=== PATIENT | male | born 1960 | race Caucasian/White ===

== ENCOUNTER 2022-07-12 09:52 | Outpatient (REF) | payer OTHER, SELFPAY | END 2022-07-12 09:53 | disposition home or self-care (01) | LOC: HO.BBR 09:52 | PROVIDERS: Visit Provider Internal Medicine Hematology | DX: D45 Polycythemia vera (principal) | CPT/HCPCS: 85018; 99195 ==

== ENCOUNTER 2022-07-17 08:02 | Outpatient (REF) | payer OTHER, SELFPAY | END 2022-07-17 08:03 | disposition home or self-care (01) | LOC: HO.BBR 08:02 | PROVIDERS: Visit Provider Internal Medicine Hematology | DX: D75.1 Secondary polycythemia (principal) | CPT/HCPCS: 85014; 85018; 99195 ==

== ENCOUNTER 2022-10-17 07:59 | Outpatient (REF) | payer OTHER, SELFPAY | END 2022-10-17 08:00 | disposition home or self-care (01) | LOC: HO.BBR 07:59 | PROVIDERS: Visit Provider Internal Medicine Hematology | DX: D75.1 Secondary polycythemia (principal) | CPT/HCPCS: 85018; 99195 ==

== ENCOUNTER 2023-01-17 07:59 | Outpatient (REF) | payer OTHER, SELFPAY | END 2023-01-17 08:00 | disposition home or self-care (01) | LOC: HO.BBR 07:59 | PROVIDERS: PCP Internal Medicine; Visit Provider Internal Medicine Hematology | DX: D75.1 Secondary polycythemia (principal) | CPT/HCPCS: 85018; 99195 ==

== ENCOUNTER 2023-04-21 07:57 | Outpatient (REF) | payer OTHER, SELFPAY | END 2023-04-21 07:58 | disposition home or self-care (01) | LOC: HO.BBR 07:57 | PROVIDERS: PCP Internal Medicine; Visit Provider Internal Medicine Hematology | DX: D75.1 Secondary polycythemia (principal) | CPT/HCPCS: 85018; 99195 ==

== ENCOUNTER 2023-07-28 09:41 | Outpatient (REF) | payer OTHER, SELFPAY | END 2023-07-28 09:42 | disposition home or self-care (01) | LOC: HO.BBR 09:41 | PROVIDERS: PCP Internal Medicine; Visit Provider Internal Medicine Hematology | DX: D75.1 Secondary polycythemia (principal) | CPT/HCPCS: 85018 ==

== ENCOUNTER 2023-10-22 10:02 | Outpatient (REF) | payer MEDICARE, SELFPAY | END 2023-10-22 10:03 | disposition home or self-care (01) | LOC: HO.BBR 10:02 | PROVIDERS: PCP Internal Medicine; Visit Provider Internal Medicine Hematology | DX: D75.1 Secondary polycythemia (principal) | CPT/HCPCS: 85018; 99195 ==

== ENCOUNTER 2024-01-22 08:40 | Outpatient (REF) | payer MEDICARE, SELFPAY | END 2024-01-22 08:41 | disposition home or self-care (01) | LOC: HO.BBR 08:40 | PROVIDERS: PCP Internal Medicine; Visit Provider Internal Medicine Hematology | DX: D75.1 Secondary polycythemia (principal) | CPT/HCPCS: 85014; 85018; 99195 ==

== ENCOUNTER 2024-04-23 08:51 | Outpatient (REF) | payer MEDICARE, SELFPAY ==
--- OUTSIDE RECORDS SUMMARY | 2024-04-23 09:12 | XMS_ITS | Clinical Summary ---
Author Organization [facility] Address [address] [place] [address] Care Team Providers Care Foot Drill Operator Name Role Phone Ksenia Pat PA-C Primary Care Provider [phone] Source Comments PLEASE NOTE, if this patient is a minor, it may be UNLAWFUL to discuss sensitive information that is contained in these records (such as FAMILY PLANNING, MENTAL HEALTH or SUBSTANCE ABUSE) with the minor patient's parent or other person without the patient's specific authorization.[facility] Allergies Active Allergy Reactions Criticality Noted Date Comments Oxycodone-Acetaminophen Swelling 06/17/2014 Penicillin G Rash 06/17/2014 Medications azithromycin (ZITHROMAX) 250 mg tabletIndications :Strep pharyngitis Take 2 tabs x 1 day, then 1 tab daily x 5 days. 6 Tab 0 09/15/2014 Active fluticasone (FLONASE) 50 mcg/actuation nasal sprayIndications: URI (upper respiratory infection) Place 1 [place] into the nostril(s) once daily. 16 g 0 10/11/2014 Active Active Problems Problem Noted Date Diagnosed Date H/O CT scan of abdomen/ [facility] 07/06/15 07/16/2015 Overview (07/16/2015): Mild cardiomegally Mult indeterminate lesion in liver; spleen and adrenals normal. No hydronephrosis b/l. No renal calculi- likely benign cyst in right kidney ? asymetry along left prostate degen cng L4-L5 Plan cystoscopy under sedation to r/o CA by uro Hematuria 07/07/2015 Overview (08/30/2015): 08/24/15 [facility] retrograde pyelogram- kennedy contoour, caliber, and contrast density to ureters b/l and collecting system 08/24/15 had cytoscopy done bx taken; biopsies were from hemangioma areas 06/26/15 urine neg for malignant cells 07/07/15 saw uro- MD Renay plan? CT ? Mild eccentric thickening right lateral aspect of bladder- bilat fat inguinal hernia and enlarged prostate with calcifications pt had GROSS hematuria with clotsthe pt would like to proceed with cytology under sedation to r/o cancer definatively [facility] [phone] ua RBC small, ord CT pelvis and doing cystoscopy Urinary frequency 05/25/2015 Overview (10/03/2015): 09/05/15 saw uro- dr. niño- : gross hemataturia: recent TURBT neg for malig. F/u 6 mon with cytology x 3. BPH: emptying well- pvr 59cc 06/26/15 urine neg for amlignant cells PV urolofy 05/22/14 uro [facility], Dr. 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 +narrowing of the interverterbral disc space, and marginal osteophytes noted. +lack of normal lordotic curvature noted+osteophytes in=mpinging on the left lat neural foramen at the C7-T-1 level LSspine film done multilevel chg of LS with gr 1 anterolisthesis of L5 on S1. +mild decreased body height of L5 degenerative in nature and as the result of BULGING disc at L5-S-1, and L4-L-5 levels See's [place] [facility] #[phone],Marc Culver D.C.,MARTHA: pt responding to pulsatar for manipulation Esophageal reflux Overview (06/17/2014): 2014: had egd/colon at [facility]. det pre workout drink was the prob/avaioid soda/gluten Left thigh pain Overview (06/17/2014): torn left quad Biceps tendon rupture Overview (06/17/2014): left 2011 Left hand pain Overview (06/17/2014): chronic ligament tear; 2009 LBP (low back pain) Overview (06/17/2014): chiropractor. that helped. has pulse star. he wants xray Sinus disease Overview (06/17/2014): congestion life long. goes to chiropracter for this Normal cardiac stress test Overview (06/17/2014): done in [place]: normal EKG [facility] Skin cancer, basal cell Overview (06/17/2014): scalp/forehead Family History Medical History Relation Name Comments Alcohol/Drug Abuse Brother Diabetes Father parkinsons at age 70 Heart Problems Father parkinsons at age 70 Asthma Mother 70's Diabetes Mother 70's Heart Problems Mother 70's Relation Name Status Comments Brother Alive Father parkinsons at age 70 Mother 70's Sister well Alive Social History Tobacco Use Types Packs/Day Years Used Date Smoking Tobacco: Never Alcohol Use Standard Drinks/Week Comments Yes 0 (1 standard drink = 0.6 oz pur e alcohol) rare Social Connections Answer Date Recorded Social Connections and Isolation 0 11/08/2018 Financial Resource Strain Answer Date R ecorded Financial Resource Strain 0 2018 Stress Answer Date Recorded Stress 0 11/08/2018 Physical Activity Answer Date Recorded Physical Activity 0 11/08/2018 Food Insecurity Answer Date Recorded Food 0 11/08/2018 Transportation Needs Answer Date Record ed Transportation 0 11/08/2018 Housing Stability Answer Date Recorded Housing 0 11/08/2018 Safety and Environment Answer Date Yamil rded Safety 0 11/08/2018 Utilities Answer Date Recorded Utilities 0 11/08/2018 Employment Answer Date Recorded Employment 0 11/08/2018 Sex and Gender Information Value Date Recorded Sex Assigned at Not on file Legal Sex Male 7:41 AM PST Gender Identity Not on file Sexual Orientation Not on file Last Filed Vital Signs Vital Sign Reading Time Taken Comments Blood Pressure 132/90 06/22/2015 9:29 AM EDT Pulse 76 06/22/2015 9:29 AM EDT Temperature 36.7 ??C (98 ??F) 06/22/2015 9:29 AM EDT Respiratory Rate 19 06/22/2015 9:29 AM EDT Oxygen Saturation - - Inhaled Oxygen Concentration - - Weight 105.1 kg (231 lb 11.2 oz) 06/22/2015 9:29 AM EDT Height 193 cm (6' 4 ) 09/12/2014 2:11 PM EDT Body Mass Index 28.2 09/12/2014 2:11 PM EDT Plan of Treatment Not on file Insurance [facility] Member Subscriber Plan / Payer (Ef fective 2014-Present) Name:Kirill Vázquez Relation to Subscriber:Self Name:Kirill Vázquez Payer ID:[id number] Group ID:Not on file Type:Medicaid Address: [address] [address] Care Teams Foot Drill Operator Relationship Specialty Start Date End Date Ksenia Pat PA-C [address] [place] [address] PCP - General 05/12/18
--- OUTSIDE RECORDS SUMMARY | 2024-04-23 09:12 | XMS_ITS | Continuity of Care Document ---
Author Organization [facility] Address [address] [place] [address]- Care Team Providers Care Vocal Artist Name Role Phone Brian Goldsmith DO Primary Care Physician [id number] Date(s): 01/09/24 - 04/03/24 [facility]ly [facility] [address] [place] [address]- Discharge Disposition: A-D/C Home Attending Physician: Daiana GRIDER(Hem/Onc), Alejo Vallejo Admitting Physician: Daiana GRIDER(Hem/Onc)Alejo Referring Physician: Brian Goldsmith DO Encounter Type: Disch Recurring OP Allergies, Adverse Reactions, Alerts Substance Criticality Severity Reaction Reaction Severity Status penicillin rash Active Percocet 5/325 swelling Activ e oxyCODONE Flushing Active OxyCONTIN swelling, rash Activ e Medications Claritin 10 mg oral tablet 10 mg, 1, tablet, By Mouth, Daily, Refills 0, Maintenance, 06/29/22 10:27:00 AM EDT, Partial fill upon patient request if the prescription is for a schedule II opioid drug. Start Date: 06/29/22 Status: Ordered Repeat number: 1 Probiotic Formula By Mouth, Daily, 0 Refills, Maintenance, 06/29/22 10:38:00 AM EDT, Partial fill upon patient requestif the prescription is for a schedule II opioid drug. Start Date: 06/29/22 Status: Ordered Repeat number: 1 testosterone cypionate 100 mg/mL intramuscular solution = 100 mg, Intramuscular, Every 7 days, 0 Refills, Maintenance, 06/29/22 11:24:00 AM EDT, Partial fill upon patient request if the prescription is for a schedule II opioid drug. Start Date: 06/29/22 Status: Ordered Repeat number: 1 Problem List Condition Confirmation Course Effective Dates Status Health St atus Informant COVID-19 1 Confirmed 04/18/21 Active Erythrocytosis Confirmed Active 1Problem added by Discern Expert Vital Signs Most recent to oldest [Reference Range]: 1 Height 190 cm (02/02/24 10:21 AM) Weight 106.7 kg (02/02/24 10:21 AM) Oxygen Saturation [94-100 %] 96 % (02/02/24 10:21 AM) Pulse Rate [55-90 bpm] 75 bpm (02/02/24 10:21 AM) Body Mass Index [18.5-24.99 kg/m2] 29.56 kg/m2 *H* (02/02/24 10:21 AM) Blood Pressure [90-138/55-84 mm Hg] 149/ 77mm Hg *H* (02/02/24 10:21 AM) Temperature [96.8-100.4 DegF] 98 DegF (02/02/24 10:21 AM) Mode of Delivery (Oxygen) Room air (02/02/24 10:21 AM) Blood pressure sites Arm, right (02/02/24 10:21 AM) Temperature Route Temporal (02/02/24 10:21 AM) Dry Weight 106.7 kg (02/02/24 10:21 AM) Weight Obtained Via Standing scale (02/02/24 10:21 AM) Dry Weight Obtained Via Standing scale (02/02/24 10:21 AM) Social History Social History Type Response Smoking Status Never smoker entered on: 08/21/17 Sex Sex Representation Male (finding) Patient Care team information Care Team Personnel Name: Brian Goldsmith DO Position: [facility] Physician - Primary Care Member Role: PCP Address: [address] [place] [address] Telecom: Name: Daiana GRIDER(Hem/Onc)Alejo Position: [facility] Physician - Oncology Med Service: Hematology & Oncology Member Role: Admitting Physician Address: [address] [place] [address] for Cancer Care [facility] Hematology Oncology [place], [place] [address] Telecom: Care Team Related Persons Name: DECLINED, DECLINED Name: WILEY HANKINS Insurance Providers Guarantor name: KWAN SANIYA [facility] Plan Information #: 1 Payer: JOSE ANTONIO Member Number: [id number] Policy Number: JOSE ANTONIO Group Number: [id number] Health Plan Information #: 2 Payer: JOSE ANTONIO Member Number: [id number] Policy Number: JOSE ANTONIO Group Number: [id number]
== END 2024-04-23 08:52 | disposition home or self-care (01) ==
LOC: HO.BBR 08:51
PROVIDERS: PCP Internal Medicine; Visit Provider Internal Medicine Hematology
DX: D75.1 Secondary polycythemia (principal)

== ENCOUNTER 2024-07-26 09:53 | Outpatient (REF) | payer MEDICARE, SELFPAY ==
--- OUTSIDE RECORDS SUMMARY | 2024-07-26 10:14 | XMS_ITS | Clinical Summary ---
Author Organization [facility] Address [address] [place] [address] Care Team Providers Care Naval Aircrewman Name Role Phone Brian Goldsmith MD Primary Care Provider Allergies Active Allergy Reactions Criticality Noted Date Comments Oxycodone Other (See Comments) 07/24/2021 Oxycodone-Acetaminophen Swelling 06/17/2014 Penicillin G Rash Low 06/17/2014 Medications No known medications Active Problems Problem Noted Date Diagnosed Date Overuse injury of lower leg 07/24/2021 Arthritis of knee, left 07/24/2021 Arthritis of left hip 07/24/2021 Family History Medical History Relation Name Comments Diabetes Father Diabetes Mother Relation Name Status Comments Father Mother Social History Tobacco Use Types Packs/Day Years Used Date Smoking Tobacco: Never Assessed Sex and Gender Information Value Date Recorded Sex Assigned at Not on file Gender Identity Not on file Sexual Orientation Not on file Job Start Date Occupation Industry Not on file Not on file Not on file Last Filed Vital Signs Vital Sign Reading Time Taken Comments Blood Pressure - - Pulse - - Temperature - - Respiratory Rate - - Oxygen Saturation - - Inhaled Oxygen Concentration - - Weight 97.5 kg (215 lb) 07/24/2021 2:28 PM EDT Height 193 cm (6' 4 ) 07/24/2021 2:28 PM EDT Body Mass Index 26.17 07/24/2021 2:28 PM EDT Plan of Treatment Health Maintenance Due Date Last Done Comments Hepatitis C Screening 1960 COVID-19 Vaccine (#1) 05/01/1959 Depression Screening 1970 BMI Counseling 1976 Preventative Health Evaluation 1976 DTap / Tdap / Td (1 - Tdap) 1977 Colon Cancer Screening (Colonoscopy) 10/30/2003 Shingrix-Zoster Vaccine (1 of 2) 2008 Fall Risk Assessment 10/30/2023 Pneumococcal Vaccine (1 of 1 - PCV) 10/30/2023 Influenza Vaccine (#1) 2023 RSV Adult > 60+ Yrs or Pregn ant (1 - 1-dose 75+ series) 2033 Hepatitis B Vaccines Aged Out No long er eligible based on patient's age to complete this topic Pneumococcal Vaccine Aged Out No long er eligible based on patient's age to complete this topic RSV Ped < 20 months Aged Out No longe r eligible based on patient's age to complete this topic Care Teams Naval Aircrewman Relationship Specialty Start Date End Date Brian Goldsmith MD [address] [place] [address], [place] [address] PCP - General Internal Medicine 07/20/21
--- OUTSIDE RECORDS SUMMARY | 2024-07-26 10:14 | XMS_ITS | Data Portability ---
Author Organization [place] - [facility] Address [address] [address] Care Team Providers Care Radiator Specialist Name Role Phone LIEN SAAVEDRA Primary Care Provider Assessment Encounter Date Assessment Date Assessment LastModified by Organization Details LastModified Time 04/30/2024 04/30/2024 Patient was referred for evaluation of right neck calcification noted on dental imaging. It is not clear whether this represents a salivary stone versus calcification of his carotid artery. A CT neck with contrast will be requested to further investigate. Fortunately he is without any significant symptoms of salivary infection or history of TIA or bruit on examination. We may review results through the portal [employer] Not available 04/30/2024 11:17:41 Plan of Treatment Reminders Order Date Submit Date Provider Last Modified By Organization Details Last Modified Time Details Appointments None recorded. Lab None recorded. Referral None recorded. Procedures None recorded. Surgeries None recorded. Imaging CT, neck, soft tissue, w/ contrast 2024 025 pgustavson [facility], [address] , [facility] [address], [address], 09:36:30 Medication Orders None recorded. Patient TargetsNo targets recorded. Patient InstructionsNo instructions recorded. Reason for Referral None Reported. Results Created Date Observation Date Name Description Value Unit Range Abnormal Flag Note LastModifiedBy Organization Detail LastModifiedTime 05/13/1905/12/2024 CT, neck, soft tissu e, w/ contr ast No observ ation record ed. COCO [facility] [address] [facility] [address], [place], [address], 05/14/2024 13:47:41 Result Notes None recorded. Problems Name Problem SNOMED Code Status Onset Date Resolution Date Notes Provider Name and Address Organization Details Recorded Time Deviated nasal septum 598326620 Active 2014 Deviated nasal septum; Note: Date Diagnosed : 12/20/2014 10:34 AM (J34.2) Not Available [facility] 4 03:27:52 Stomatitis 13407164 Active 2014 Candidal stomatiti s; Note: Date Diagnosed : 12/20/2014 10:34 AM (B37.0) resolved Not Available [facility] 4 03:27:52 Candidiasi s of mouth 67792811 Active 2014 Candidal stomatiti s; Note: Date Diagnosed : 12/20/2014 10:34 AM (B37.0) resolved Not Available [facility] 4 03:27:52 Sialolithi asis 09331894 Active 2024 MARCELLUS HENDRICKSON MD [address] [place] [address], [place], [address] [facility] 5 11:15:35 Problem Notes None recorded. Procedures Surgical History None recorded. Imaging Results Imaging Date Name Status LastModified by Organiz ation Details LastModified Time 05/12/2024 CT, neck, soft tissue, w/ contrast completed [facility] [address] [address], [place], [address], 05/14/2024 13:47:41 Procedure Notes None recorded. Medical Equipment None Reported. Allergies Allergen ID Allergen Name Allergen Category Reaction Reaction Severity Criticality Documentation Date Start Date Code Code System Note Provider Name and Address Organization Details Recorded Time 252981 penicilli n V potassium medicatio n other Not available Not available 07/29/2023 97248 5 RxNorm React ion: unkno wn, unspe cifie d;; Not Available [facility] 4 01:20:21 451987 acetamino phen / oxycodone medicatio n other Not available Not available 07/29/2023 60928 3 RxNorm React ion: unkno wn, unspe cifie d;; Not Available [facility] 4 01:20:22 Medications Name Sig Start Date Stop Date Status Note LastModified by Organization Details LastModified Time clotrimaz ole 10 mg anca 1 anca in mouth 2014 [place] ID: [id number] Du ration Value: 7 Prescri bed By Name: Roxanna Field nd Name: clotrima zole Sen d Method: E-Prescr ibed Sub s Allowed: subs OK Medic ationGen ericName : clotrima zole Not Available Not Available Not Available nystatin 100,000 unit/mL oral suspensio n 2014 active Medicati on ID: [id number] Pr escribed By Name: Roxanna Field nd Name: nystatin Send Method: E-Prescr ibed Sub s Allowed: subs OK Speci al Instruct ion: 5 ml swish and swallow four times daily x 2-4 weeks Me dication GenericN jose guadalupe: nystatin Not Available Not Available Not Available ciproflox acin 500 mg tablet TAKE 1 TAB 1 HR BEFORE PROCEDUR E & 1 TAB 10 HRS AFTER active Not Available Not Available No t Available tamsulosi n 0.4 mg capsule TAKE 1 CAPSULE BY MOUTH EVERY DAY TO HELP PASS STONE FRAGMENT S active Not Available Not Available No t Available omeprazol e 20 mg capsule,d elayed release TAKE 1 CAPSULE BY MOUTH EVERY DAY 30 MINUTES BEFORE MORNING MEAL active Not Available Not Available No t Available levofloxa sheryl 750 mg tablet 02/01 completed Medicati on ID: [id number] Du ration Value: 10 Reason: () Brand Name: levoflox acin Sen d Method: E-Prescr ibed Sub s Allowed: subs OK Speci al Instruct ion: TAKE 1 TAB BY MOUTH ONCE DAILY. Dorian Villalba Name: levoflox acin Not Available Not Available Not Available fluticaso ne propionat e 50 mcg/actua tion nasal spray,honey pension 2014 active Medicati on ID: [id number] Du ration Value: 30 Brand Name: fluticas one Send Method: E-Prescr ibed Sub s Allowed: subs OK Speci al Instruct ion: PLACE 1 SPRAY INTO THE NOSTRIL( S) ONCE DAILY. Dorian Villalba Name: fluticas one Not Available Not Available Not Available rosuvasta tin 5 mg tablet TAKE 1 TABLET BY MOUTH EVERY DAY FOR 30 DAYS active Not Available Not Available No t Available GaviLyte- G 236 gram-22.7 4 gram-6.74 gram-5.86 gram oral solution TAKE 8 OUNCE BY MOUTH DIRECTED DRINK A GLASS EVERY 10-15 MINUTES active Not Available Not Available No t Available Vitals Date Recorded Body weight Body mass index (BMI) Body height Provider Name and Address Organization Details Last Updated DateTime 04/30/2024 360229.25 g 28.7 kg/m2 190.5 cm Fay Gomez [place] - [facility] 04/30/2024 11:07:48 Social History None recorded. Functional Status None recorded. Mental Status None recorded. Family History Nothing Reported. Medical History Condition Response Cancer Y Arthritis Y Past Encounters Encounter ID Performer Location Encounter Start Date Encounter Closed Date Diagnosis/Indication Diagnosis SNOMED-CT Code Diagnosis ICD10 Code Diagnosis Note [id number] MARCELLUS HENDRICKSON MD [facility] [address] [address] 04/30/2024 09:56:03 04/30/2024 11:18:34 Sialolithiasis 13798176 K11.5 Health Concerns Section Related Observation LastModified by Organization Detai ls LastModified Time None Recorded Concern Status LastModified by Organization Details LastModified Time None Recorded Advance Directives Directive None Recorded Payers Insurance Date Sequence Insurance Name Policy Number Policy Motley Covered Member ID Motley Member ID Guarantor Name 04/30/2024 1 [employer] (MEDICARE REPLACEMENT PPO) [id number] Kirill Vázquez [id number] Kirill Vázquez Notes Date Note Type Note Provider Name and Address Organization Details Recorded Time 04/30/2024 text/html dentist noted calcification right side artery?unable to load CD in my officeno hx of TIA/CVAotherwise asymptomatic from neckno hx of salivary stones 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
--- OUTSIDE RECORDS SUMMARY | 2024-07-26 10:14 | XMS_ITS | Clinical Summary ---
Author Organization [facility] Address [address] [place] [address] Care Team Providers Care Senior Oracle Soa Developer Name Role Phone Ksenia Pat PA-C Primary Care Provider [phone] Source Comments PLEASE NOTE, if this patient [...] sprayIndications: URI (upper respiratory infection) Place 1 [place] into the nostril(s) once daily. 16 g [...] sedation to r/o cancer definatively [facility] [phone] ua RBC small, ord CT pelvis and doing cystoscopy Urinary frequency 05/25/2015 Overview (10/03/2015): 09/05/15 saw uro- dr. niño- : gross hemataturia: recent TURBT neg for malig. F/u 6 mon with cytology x 3. BPH: emptying well- pvr 59cc 06/26/15 urine neg for amlignant cells PV urolofy 05/22/14 uro [facility], Dr. 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 with Cialis 5mg 1 po daily , and oxybutynin chloride 10mg 1 po daily Knee pain, left 11/04/2014 Overview (11/04/2014): 10/26/14: MR left knee + suprapatellar loose bodies/surgical sequelae/OA (mervat) Mervat 10/24/14 arthritic chg and small effusion [facility] plain film left knee neck and [...] disc at L5-S-1, and L4-L-5 levels See's [place] [facility] #[phone],Marc Culver D.C.,MARTHA: pt responding to pulsatar for [...] cardiac stress test Overview (06/17/2014): done in [place] 2013: normal EKG [facility] Skin cancer, basal cell Overview (06/17/2014): scalp/forehead [...] Plan of Treatment Not on file Insurance [facility] Member Subscriber Plan / Payer (Ef fective 2014-Present) Name:Kirill Vázquez Relation to Subscriber:Self Name:Kirill Vázquez Payer ID:[id number] Group ID:Not on file Type:Medicaid Address: [address] [address] Care Teams Senior Oracle Soa Developer Relationship Specialty Start Date End Date Ksenia Pat PA-C [address] [place] [address] PCP - General 05/12/18
== END 2024-07-26 09:54 | disposition home or self-care (01) ==
LOC: HO.BBR 09:53
PROVIDERS: Visit Provider Internal Medicine Hematology
DX: E83.119 Hemochromatosis, unspecified (principal)
CPT/HCPCS: 85014; 85018; 99195

== ENCOUNTER 2024-10-26 08:50 | Outpatient (REF) | payer MEDICARE, SELFPAY ==
--- OUTSIDE RECORDS SUMMARY | 2024-10-26 09:08 | XMS_ITS | Clinical Summary ---
Author Organization [facility] Address [address] [place] [address] Care Team Providers Care Product Development Manager Name Role Phone Ksenia Pat PA-C Primary Care Provider [phone] Source Comments PLEASE NOTE, if this patient [...] sprayIndications: URI (upper respiratory infection) Place 1 [place] into the nostril(s) once daily. 16 g [...] sedation to r/o cancer definatively [facility] [phone] ua RBC small, ord CT pelvis and doing cystoscopy Urinary frequency 05/25/2015 Overview (10/03/2015): 09/05/15 saw uro- dr. niño- : gross hemataturia: recent TURBT neg for malig. F/u 6 mon with cytology x 3. BPH: emptying well- pvr 59cc 06/26/15 urine neg for amlignant cells PV urolofy 05/22/14 uro [facility], Dr. 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 with Cialis 5mg 1 po daily , and oxybutynin chloride 10mg 1 po daily Knee pain, left 11/04/2014 Overview (11/04/2014): 10/26/14: MR left knee + suprapatellar loose bodies/surgical sequelae/OA (mervat) Mervat 10/24/14 arthritic chg and small effusion [facility] plain film left knee neck and low [...] disc at L5-S-1, and L4-L-5 levels See[facility] [place] [facility] #[phone],Marc Culver D.C.,MARTHA: pt responding to pulsatar for [...] cardiac stress test Overview (06/17/2014): done in [place] 2013: normal EKG [facility] Skin cancer, basal cell Overview (06/17/2014): [...] 76 06/22/2015 9:29 AM EDT Temperature 36.7 C (98 F) 06/22/2015 9:29 AM EDT Respiratory Rate 19 06/22/2015 9:29 AM EDT Oxygen Saturation - - Inhaled Oxygen Concentration - - Weight 105.1 kg (231 lb 11.2 oz) 06/22/2015 9:29 AM EDT Height 193 cm (6' 4 ) 09/12/2014 2:11 PM EDT Body Mass Index 28.2 09/12/2014 2:11 PM EDT Plan of Treatment Not on file Insurance [facility] Care Teams Product Development Manager Relationship Specialty Start Date End Date Ksenia Pat PA-C [address] [place] [address] PCP - General 05/12/18
--- OUTSIDE RECORDS SUMMARY | 2024-10-26 09:08 | XMS_ITS | Clinical Summary ---
Author Organization [facility] Address [address] [place] [phone] Phone Care Team Providers Care Senior Graduate Advisor Name Role Phone Brian Goldsmith DO Primary Care Provider [phone] Surgical History Surgery Date Site/Laterality Comments KNEE SURGERY PROCEDURE:KNEE SURGERY SHOULDER SURGERY PROCEDURE:SHOULDER SURGERY Family History Medical History Relation Name Comments Diabetes Father Diabetes Mother Relation Name Status Comments Father Mother Social History Tobacco Use Types Packs/Day Years Used Date Smoking Tobacco: Never Assessed Sex and Gender Information Value Date Recorded Sex Assigned at Not on file Legal Sex Male 4:54 PM EST Gender Identity Not on file Sexual Orientation Not on file Obstetrics History Last Filed Vital Signs Vital Sign Reading [...] Health Maintenance Due Date Last Done Comments DTaP,Tdap,and Td Vaccines (1 - Tdap) 1977 Pneumococcal Vaccine: 50+ Ye ars (1 of 1 - PCV) 2008 Zoster Vaccines (1 of 2) 2008 Abdominal Aortic Aneurysm (A AA) Screen 02/13/2022 Cholesterol Screening (Lipid Panel) 02/13/2022 Colorectal Cancer Screening: Colonoscopy 02/13/2022 Hepatitis C Screening 02/13/2022 Medicare Annual Wellness Visit 02/13/2022 Social Influencers of Health Screening 02/13/2022 Falls Risk Assessment 10/30/2023 COVID-19 Vaccine (1 - 2023-2 5 season) 2023 Depression Screening 03/17/2024 Influenza Vaccine (#1) 2024 RSV Immunization Adult Patie nts (1 - 1-dose 75+ series) 2033 HIB Vaccines Aged Out No longer eligi ble based on patient's age to complete this topic HPV Vaccines Aged Out No longer eligi ble based on patient's age to complete this topic Hepatitis A Vaccines Aged Out No long er eligible based on patient's age to complete this topic Hepatitis B Vaccines Aged Out No long er eligible based on patient's age to complete this topic IPV Vaccines Aged Out No longer eligi ble based on patient's age to complete this topic MMR Vaccines Aged Out No longer eligi ble based on patient's age to complete this topic Meningococcal ACWY Vaccine Aged Out N o longer eligible based on patient's age to complete this topic Meningococcal B Vaccine Aged Out No l onger eligible based on patient's age to complete this topic RSV Immunization Patients Un cassie 20 months Aged Out No longer eligible b ased on patient's age to complete this topic Varicella Vaccines Aged Out No longer eligible based on patient's age to complete this topic Insurance [employer] Care Teams Senior Graduate Advisor Relationship Specialty Start Date End Date Brian Goldsmith DO [address] [place] [address] PCP - General Internal Medicine 07/20/21
--- OUTSIDE RECORDS SUMMARY | 2024-10-26 09:08 | XMS_ITS | Clinical Summary ---
Author Organization [facility] Address [address] [place] [address] Care Team Providers Care Special Education Paraprofessional Name Role Phone Brian Goldsmith MD Primary Care Provider [phone] Allergies Active Allergy Reactions Criticality Noted Date [...] 1 - PCV) 10/30/2023 Influenza Vaccine (#1) 2024 RSV Adult > 60+ Yrs or Pregn [...] age to complete this topic Care Teams Special Education Paraprofessional Relationship Specialty Start Date End Date Brian Goldsmith MD [address] [place] [address], [place] [address] PCP - General Internal Medicine 07/20/21
== END 2024-10-26 08:51 | disposition home or self-care (01) ==
LOC: HO.BBR 08:50
PROVIDERS: PCP Internal Medicine; Visit Provider Internal Medicine Hematology
DX: D75.1 Secondary polycythemia (principal)
CPT/HCPCS: 85018; 99195

== ENCOUNTER 2025-01-26 08:36 | Outpatient (REF) | payer MEDICARE, SELFPAY ==
--- OUTSIDE RECORDS SUMMARY | 2025-01-26 08:55 | XMS_ITS | Clinical Summary ---
Author Organization [facility] Address [address] [place] [address] Care Team Providers Care Animation Artist Name Role Phone Brian Goldsmith MD Primary Care Provider [phone] Allergies Active Allergy Reactions Criticality Noted Date [...] age to complete this topic Care Teams Animation Artist Relationship Specialty Start Date End Date Brian Goldsmith MD [address] [place] [address], [place] [address] PCP - General Internal Medicine 07/20/21
--- OUTSIDE RECORDS SUMMARY | 2025-01-26 08:55 | XMS_ITS | Clinical Summary ---
Author Organization [facility] Address [address] [place] [address] Care Team Providers Care Mobile Nurse Name Role Phone Ksenia Pat PA-C Primary Care Provider [phone] Source Comments PLEASE NOTE, if this patient [...] sedation to r/o cancer definatively [facility] [phone] ua RBC small, ord CT pelvis and doing cystoscopy Urinary frequency 05/25/2015 Overview (10/03/2015): 09/05/15 saw uro- dr. niño- : gross hemataturia: recent TURBT neg for malig. F/u 6 mon with cytology x 3. BPH: emptying well- pvr 59cc 06/26/15 urine neg for amlignant cells PV urolofy 05/22/14 uro [facility], Dr. 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 Cialis 5mg 1 po daily , and oxybutynin chloride 10mg 1 po daily Knee pain, left 11/04/2014 Overview (11/04/2014): 10/26/14: MR left knee + suprapatellar loose bodies/surgical sequelae/OA (mervat) Mervat 10/24/14 arthritic chg and small effusion [facility] plain film left knee neck and low [...] disc at L5-S-1, and L4-L-5 levels See's [place] [facility] #[phone],Marc Culver D.C.,MARTHA: pt responding to pulsatar for [...] cardiac stress test Overview (06/17/2014): done in [place] 2013: normal EKG [facility] Skin cancer, basal cell Overview (06/17/2014): [...] Plan of Treatment Not on file Insurance [facility] Care Teams Mobile Nurse Relationship Specialty Start Date End Date Ksenia Pat PA-C [address] [place] [address] PCP - General 05/12/18
--- OUTSIDE RECORDS SUMMARY | 2025-01-26 08:55 | XMS_ITS | Clinical Summary ---
Author Organization [facility] Address [address] [place] [phone] Phone Care Team Providers Care Slip Presser Name Role Phone Brian Goldsmith DO Primary Care Provider [phone] Surgical History Surgery Date Site/Laterality Comments KNEE [...] Health Maintenance Due Date Last Done Comments Colorectal Cancer Screening: Colonoscopy 1958 DTaP,Tdap,and Td Vaccines (1 - Tdap) 1977 Pneumococcal Vaccine: 50+ Ye ars (1 of 1 - PCV) 2008 Zoster Vaccines (1 of 2) 2008 Abdominal Aortic Aneurysm (A AA) Screen 02/13/2022 Cholesterol Screening (Lipid Panel) 02/13/2022 Hepatitis C Screening 02/13/2022 Medicare Annual Wellness Visit 02/13/2022 Social Influencers of Health Screening 02/13/2022 Falls Risk Assessment 10/30/2023 Depression Screening 03/17/2024 COVID-19 Vaccine (1 - 2024-2 6 season) 2024 Influenza Vaccine (#1) 2024 RSV Immunization Adult [...] topic Insurance [employer]AGE Care Teams Slip Presser Relationship Specialty Start Date End Date Brian Goldsmith DO [address] [place] [address] PCP - General Internal Medicine 07/20/21
--- OUTSIDE RECORDS SUMMARY | 2025-01-26 08:55 | XMS_ITS | Encounter Summary ---
Author Organization [facility] Address [address] [place] [address] Care Team Providers Care Content Strategy Lead Name Role Phone Brian Goldsmith DO Primary Care Provider [phone] Encounter Details Date Type Department Care Team (Late st Contact Info) Description 05/31/2024 Lab Requisition [facility] - Main Lab [address] [place] [address] Davey Wolff MD [address] [address] Malignant neoplasm of prostate (CMS/HCC V24, CMS/HCC V28) Social History Tobacco Use Types Packs/Day Years Used Date Smoking Tobacco: Never Assessed Sex and Gender Information Value Date Recorded Sex Assigned at Not on file Legal Sex Male 4:54 PM EST Gender Identity Not on file Sexual Orientation Not on file documented as of this encounter Plan of Treatment Not on file documented as of this encounter Procedures Procedure Name Priority Date/Time Associated Diagnosis Comments COMPLETE BLOOD COUNT Routine 05/31/2024 11:26 AM EDT Malignant neoplasm of prostate (CMS/HCC) documented in this encounter Results * (ABNORMAL) Complete blood count (05/31/2024 11:26 AM EDT) WBC 8.6 4.8 - 10.8 K/[facility] LAB HEMETOLOGY METHOD 05/31/2024 2:30 PM EDT [facility] RBC 5.70(H) 4.50 - 5.50 M/[facility] LAB HEMETOLOGY METHOD 05/31/2024 2:30 PM EDT [facility] Hemoglobin 16.8 13.5 - 17.5 g/dL LAB HEMETOLOGY METHOD 05/31/2024 2:30 PM EDT [facility] Hematocrit 50.2 42.0 - 54.0 % LAB HEMETOLOGY METHOD 05/31/2024 2:30 PM EDT [facility] MCV 87.8 79.0 - 98.0 FL LAB HEMETOLOGY METHOD 05/31/2024 2:30 PM EDT [facility] MCH 29.4 27.0 - 32.0 pcg LAB HEMETOLOGY METHOD 05/31/2024 2:30 PM EDT [facility] MCHC 33.5 32.0 - 37.0 g/dL LAB HEMETOLOGY METHOD 05/31/2024 2:30 PM EDT [facility] RDW 13.1 11.0 - 15.0 % LAB HEMETOLOGY METHOD 05/31/2024 2:30 PM EDT [facility] Platelets 232 130 - 400 K/mcL LAB HEMETOLOGY METHOD 05/31/2024 2:30 PM EDT [facility] MPV 11.3(H) 7.0 - 11.0 FL LAB HEMETOLOGY METHOD 05/31/2024 2:30 PM EDT [facility] NRBC 0.0 <1.0 % LAB HEMETOLOGY METHOD 05/31/2024 2:30 PM EDT [facility] NRBC Absolute 0.00 <0.10 K/mcL LAB HEMETOLOGY METHOD 05/31/2024 2:30 PM EDT [facility] Blood Venous blood specimen / Unknown 05/31/2024 11:26 AM EDT 05/31/2024 1:59 PM EDT Davey Wolff MD LAB BLOOD ORDERABLES Final Result [facility] [address] [place] [address], documented in this encounter Visit Diagnoses Diagnosis Malignant neoplasm of prostate (CMS/HCC V24, CMS/HCC V28) Malignant neoplasm of prostate documented in this encounter Care Teams Content Strategy Lead Relationship Specialty Start Date End Date Brian Goldsmith DO [address] [place] [address] PCP - General Internal Medicine 07/20/21 documented as of this encounter
== END 2025-01-26 08:37 | disposition home or self-care (01) ==
LOC: HO.BBR 08:36
PROVIDERS: PCP Internal Medicine; Visit Provider Internal Medicine Hematology
DX: D75.1 Secondary polycythemia (principal)
CPT/HCPCS: 85018; 99195